=== PATIENT | female | born 1990 | race Caucasian/White ===

== ENCOUNTER → 2017-01-13 | Outpatient (CLI) | payer OTHER ==
[2017-01-13 15:12] LABS: CH 24.3; CHCM 31.5; HCT 36.9 % (34.0-46.0); HDW 2.26; HGB 12.1 gm/dL (11.4-16.0); MCH 25.3 pg (25.0-35.0); MCHC 32.7 g/dL (31.0-37.0); MCV 77.5 fL (80.0-100.0); Mean Platelet Volume 6.8; RBC 4.76 m/uL (3.80-5.40); RDW 14.7 % (11.5-15.5); WBC 12.4 k/uL (3.8-10.6)
[2017-01-13 15:31] LABS: Glucose 90 mg/dL (74-99); Non-African American GFR(MDRD) >60 (>60 ml/min/1.73 sqM)
[2017-01-13 15:59] LABS: Hepatitis B Surface Ag Index 0.06
[2017-01-14 06:39] LABS: Toxoplasma Antibody (IgG) <3.0 IU/mL (<7.2)
== END ==
LOC: LABWHC1 14:51
PROVIDERS: ATTEND Obstetrics & Gynecology
DX: Z34.91 Encounter for supervision of normal pregnancy, unspecified, first trimester (principal); Z3A.00 Weeks of gestation of pregnancy not specified
CPT/HCPCS: 36415; 82565; 82947; 85027; 86762; 86777; 86778; 86780; 86850; 86900; 86901; 87340

== ENCOUNTER 2017-01-31 18:45 | Emergency (ER) | payer OTHER ==
[2017-01-31] MEDS ORDERED: PYRIDOXINE 100 MG/ML 1 ML VIAL IVP STA (19:38)
[2017-01-31] MEDS ORDERED: SODIUM CHLORIDE 0.9% 1,000 ML IV ONE (19:38)
[2017-01-31] MEDS ORDERED: diphenhydrAMINE 50 MG/ML 1 ML VIAL IVP STA (19:39)
--- NOTE | 2017-01-31 19:41 | ED ---
Nausea/Vomiting/Diarrhea HPI - General Chief complaint: Nausea/Vomiting/Diarrhea Stated complaint: vomiting with Time Seen by Provider: 01/31/17 19:11 Source: patient, RN notes reviewed Mode of arrival: ambulatory Limitations: no limitations - History of Present Illness Initial comments: Patient is a 26-year-old female presents emergency room for evaluation and nausea and vomiting. Patient states about 9 weeks . Patient states since Monday she has been unable to keep any food down. Patient states nausea and vomiting is worse in the nighttime. Patient states she is nauseous all through the day. Patient denies abdominal pain. Patient denies fevers or chills. Patient denies headache or dizziness. Patient denies pain or burning during urination, trouble urinating or blood in urine. Patient is . Patient denies history of abdominal surgeries. Patient denies vaginal bleeding or any vaginal discomfort. - Related Data Home Medications Medication Instructions Recorded Confirmed Doxylamine Succinate [Unisom] 25 mg PO HS 01/31/17 01/31/17 Pedi Multivit No.25/Folic Acid 2 tab PO DAILY 01/31/17 01/31/17 [Flintstones Multivit Chew Tab] Previous Rx's Medication Instructions Recorded Nitrofurantoin Monohyd/M-Cryst 100 mg PO Q12HR 5 Days 01/31/17 [Macrobid] Allergies Allergy/AdvReac Type Severity Reaction Status Date / Time No Known Allergies Allergy Verified 01/31/17 19:12 Review of Systems ROS Statement: Those systems with pertinent positive or pertinent negative responses have been documented in the HPI. ROS Other: All systems not noted in ROS Statement are negative. Past Medical History Past Medical History: GERD/Reflux History of Any Multi-Drug Resistant Organisms: None Reported Past Surgical History: Adenoidectomy, Ear Surgery, Tonsillectomy Past Anesthesia/Blood Transfusion Reactions: No Reported Reaction Past Psychological History: No Psychological Hx Reported Smoking Status: Never smoker Past Alcohol Use History: None Reported Past Drug Use History: None Reported - Past Family History Mother Family Medical History: No Reported History General Exam - General Exam Comments Initial Comments: Sitting in exam room, no acute distress. Limitations: no limitations General appearance: alert, in no apparent distress Head exam: Present: atraumatic, normocephalic, normal inspection Eye exam: Present: normal appearance ENT exam: Present: normal exam Neck exam: Present: normal inspection Respiratory exam: Present: normal lung sounds bilaterally. Absent: respiratory distress Cardiovascular Exam: Present: normal rhythm, tachycardia, normal heart sounds GI/Abdominal exam: Present: soft, normal bowel sounds. Absent: distended, tenderness, guarding, rebound, rigid Extremities exam: Present: normal inspection Back exam: Present: normal inspection Neurological exam: Present: alert, oriented X3, CN II-XII intact, normal gait Psychiatric exam: Present: normal affect, normal mood Skin exam: Present: warm, dry, intact, normal color. Absent: rash Course Vital Signs 01/31/17 01/31/17 19:02 22:29 Temperature 99.8 F H 97.7 F Pulse Rate 120 H 62 Respiratory 18 16 Rate Blood Pressure 113/80 114/60 O2 Sat by Pulse 100 99 Oximetry Medical Decision Making - Medical Decision Making Patient is a 26-year-old female presents to the emergency room for evaluation of nausea and vomiting. Patient states she is about 9 weeks . Patient denies vaginal bleeding. Patient given medications and states that she is feeling better. Urinalysis suspicious for urinary tract infection. Will treat patient for urinary tract infection. Advised patient to follow-up with [facility]. Patient states she understands everything that was discussed with her. Return parameters discussed. Case discussed with Dr. Fisher. - Lab Data Result diagrams: 01/31/17 19:50 01/31/17 19:50 Lab Results 01/31/17 01/31/17 01/31/17 Range/Units 19:50 19:50 19:50 WBC 12.3 H (3.8-10.6) k/uL RBC 5.00 (3.80-5.40) m/uL Hgb 12.5 (11.4-16.0) gm/dL Hct 39.4 (34.0-46.0) % MCV 78.8 L (80.0-100.0) fL MCH 25.0 (25.0-35.0) pg MCHC 31.7 (31.0-37.0) g/dL RDW 16.3 H (11.5-15.5) % Plt Count 336 (150-450) k/uL Neutrophils % 67 % Lymphocytes % 25 % Monocytes % 4 % Eosinophils % 2 % Basophils % 0 % Neutrophils # 8.2 H (1.3-7.7) k/uL Lymphocytes # 3.0 (1.0-4.8) k/uL Monocytes # 0.5 (0-1.0) k/uL Eosinophils # 0.3 (0-0.7) k/uL Basophils # 0.0 (0-0.2) k/uL Anisocytosis Slight Sodium 135 L (137-145) mmol/L Potassium 3.8 (3.5-5.1) mmol/L Chloride 104 (98-107) mmol/L Carbon Dioxide 20 L (22-30) mmol/L Anion Gap 11 mmol/L BUN 7 (7-17) mg/dL Creatinine 0.56 (0.52-1.04) mg/dL Est GFR (MDRD) Af Amer >60 (>60 ml/min/1.73 sqM) Est GFR (MDRD) Non-Af >60 (>60 ml/min/1.73 sqM) Glucose 83 (74-99) mg/dL Calcium 9.0 (8.4-10.2) mg/dL Magnesium 1.9 (1.6-2.3) mg/dL Total Bilirubin 0.3 (0.2-1.3) mg/dL AST 14 (14-36) U/L ALT 30 (9-52) U/L Alkaline Phosphatase 89 (38-126) U/L Total Protein 7.0 (6.3-8.2) g/dL Albumin 4.0 (3.5-5.0) g/dL Amylase 49 (30-110) U/L Lipase 43 (23-300) U/L HCG, Quant 282647.0 mIU/mL Urine Color Urine Appearance (Clear) Urine pH (5.0-8.0) Ur Specific Pyatt (1.001-1.035) Urine Protein (Negative) Urine Glucose (UA) (Negative) Urine Ketones (Negative) Urine Blood (Negative) Urine Nitrite (Negative) Urine Bilirubin (Negative) Urine Urobilinogen (<2.0) mg/dL Ur Leukocyte Esterase (Negative) Urine RBC (0-5) /hpf Urine WBC (0-5) /hpf Ur Squamous Epith Cells (0-4) /hpf Urine Bacteria (None) /hpf Urine Mucus (None) /hpf 01/31/17 Range/Units 19:50 WBC (3.8-10.6) k/uL RBC (3.80-5.40) m/uL Hgb (11.4-16.0) gm/dL Hct (34.0-46.0) % MCV (80.0-100.0) fL MCH (25.0-35.0) pg MCHC (31.0-37.0) g/dL RDW (11.5-15.5) % Plt Count (150-450) k/uL Neutrophils % % Lymphocytes % % Monocytes % % Eosinophils % % Basophils % % Neutrophils # (1.3-7.7) k/uL Lymphocytes # (1.0-4.8) k/uL Monocytes # (0-1.0) k/uL Eosinophils # (0-0.7) k/uL Basophils # (0-0.2) k/uL Anisocytosis Sodium (137-145) mmol/L Potassium (3.5-5.1) mmol/L Chloride (98-107) mmol/L Carbon Dioxide (22-30) mmol/L Anion Gap mmol/L BUN (7-17) mg/dL Creatinine (0.52-1.04) mg/dL Est GFR (MDRD) Af Amer (>60 ml/min/1.73 sqM) Est GFR (MDRD) Non-Af (>60 ml/min/1.73 sqM) Glucose (74-99) mg/dL Calcium (8.4-10.2) mg/dL Magnesium (1.6-2.3) mg/dL Total Bilirubin (0.2-1.3) mg/dL AST (14-36) U/L ALT (9-52) U/L Alkaline Phosphatase (38-126) U/L Total Protein (6.3-8.2) g/dL Albumin (3.5-5.0) g/dL Amylase (30-110) U/L Lipase (23-300) U/L HCG, Quant mIU/mL Urine Color Yellow Urine Appearance Cloudy H (Clear) Urine pH 6.5 (5.0-8.0) Ur Specific Pyatt 1.017 (1.001-1.035) Urine Protein Trace H (Negative) Urine Glucose (UA) Negative (Negative) Urine Ketones 1+ H (Negative) Urine Blood Negative (Negative) Urine Nitrite Negative (Negative) Urine Bilirubin Negative (Negative) Urine Urobilinogen <2.0 (<2.0) mg/dL Ur Leukocyte Esterase Moderate H (Negative) Urine RBC 5 (0-5) /hpf Urine WBC 9 H (0-5) /hpf Ur Squamous Epith Cells 14 H (0-4) /hpf Urine Bacteria Occasional H (None) /hpf Urine Mucus Rare H (None) /hpf Disposition Clinical Impression: Hyperemesis gravidarum, Urinary tract infection Disposition: HOME SELF-CARE Condition: Good Instructions: Hyperemesis Gravidarum (ED), Urinary Tract Infection in (ED) Additional Instructions: Take antibiotics as directed. Drink plenty of fluids. Please follow up with primary care provider in 1-2 days. If any new symptom arises or symptoms worsen , return to ER as soon as possible. Prescriptions: Nitrofurantoin Monohyd/M-Cryst [Macrobid] 100 mg PO Q12HR 5 Days Referrals: Ramsey Chaudhary MD [Primary Care Provider] - 1-2 days Carisa Mcnulty DO [Doctor of Osteopathic Medicine] - 1-2 days Time of Disposition: 21:45
[2017-01-31 20:03] LABS: Anisocytosis Slight; Basophils % (A) 0 %; CH 25.7; CHCM 32.8; Eosinophils # (A) 0.3 k/uL (0-0.7); Eosinophils % (A) 2 %; HCT 39.4 % (34.0-46.0); HDW 2.24; HGB 12.5 gm/dL (11.4-16.0); Luc # (Auto) 0.24; Luc % (Auto) 2; Lymphocytes % (A) 25 %; MCHC 31.7 g/dL (31.0-37.0); MCV 78.8 fL (80.0-100.0); Mean Platelet Volume 6.9; Monocytes # (A) 0.5 k/uL (0-1.0); Monocytes % (A) 4 %; Neutrophils # (A) 8.2 k/uL (1.3-7.7); Neutrophils % (A) 67 %; RDW 16.3 % (11.5-15.5); WBC 12.3 k/uL (3.8-10.6); WBC (Perox) 12.04
[2017-01-31 20:05] LABS: Appearance,Urine Cloudy (Clear); Bacteria,Urine Occasional /hpf; Bilirubin,Urine Negative (Negative); Glucose,Urine (UA) Negative (Negative); Ketones,Urine 1+ (Negative); Leukocyte Esterase,Urine Moderate (Negative); Mucus,Urine Rare /hpf; Nitrite,Urine Negative (Negative); PH, Urine 6.5 (5.0-8.0); Particle Count 3840; Protein,Urine Trace (Negative); RBC,Urine 5 /hpf (0-5); Specific Gravity,Urine 1.017 (1.001-1.035); Squamous Epithelial Cell,Urine 14 /hpf (0-4); UA Billing (MACRO vs. MICRO) MICRO; Urobilinogen,Urine <2.0 mg/dL (<2.0); WBC,Urine 9 /hpf (0-5)
[2017-01-31 20:14] LABS: ALT 30 U/L (9-52); AST 14 U/L (14-36); Alkaline Phosphatase 89 U/L (38-126); Amylase 49 U/L (30-110); Anion Gap 11 mmol/L; Blood Urea Nitrogen 7 mg/dL (7-17); Carbon Dioxide 20 mmol/L (22-30); Chloride 104 mmol/L (98-107); Glucose 83 mg/dL (74-99); Non-African American GFR(MDRD) >60 (>60 ml/min/1.73 sqM); Potassium 3.8 mmol/L (3.5-5.1); Sodium 135 mmol/L (137-145); Total Bilirubin 0.3 mg/dL (0.2-1.3)
[2017-01-31 20:46] LABS: Magnesium 1.9 mg/dL (1.6-2.3)
[2017-01-31] MEDS ORDERED: NITROFURANTOIN MONOHYD/M-CRYST 100 MG CAP PO STA (21:34)
[2017-01-31] MEDS ORDERED: METOCLOPRAMIDE 5 MG/ML 2 ML VIAL IVP STA (21:37)
[2017-01-31] MEDS ORDERED: SODIUM CHLORIDE 0.9% 500 ML IV ONE (21:37)
[2017-01-31 22:30] VITALS: BP 114/60; PULSE 62; RESP 16; TEMP 97.7
== END 2017-01-31 22:29 | disposition home or self-care (01) ==
LOC: EC 18:45
DX: O21.0 Mild hyperemesis gravidarum (principal); O23.41 Unspecified infection of urinary tract in pregnancy, first trimester; O99.89 Other specified diseases and conditions complicating pregnancy, childbirth and the puerperium; R00.0 Tachycardia, unspecified; Z79.899 Other long term (current) drug therapy; Z3A.09 9 weeks gestation of pregnancy
CPT/HCPCS: 36415; 80053; 82150; 83690; 83735; 85025; 81001; 84702; 99284; 96374; 96375 ×2; 96361 ×2; J1200; J3415; J2765

== ENCOUNTER → 2017-05-23 | Outpatient (CLI) | payer OTHER ==
[2017-05-23 10:25] LABS: CH 26.4; CHCM 31.9; HCT 33.2 % (34.0-46.0); HDW 2.69; HGB 10.4 gm/dL (11.4-16.0); Hypochromasia Slight; MCHC 31.3 g/dL (31.0-37.0); MCV 83.3 fL (80.0-100.0); Mean Platelet Volume 6.8; RBC 3.98 m/uL (3.80-5.40); RDW 13.7 % (11.5-15.5); WBC 9.1 k/uL (3.8-10.6)
== END | disposition home or self-care (01) ==
LOC: LABWHC1 08:46
PROVIDERS: ATTEND Obstetrics & Gynecology
DX: Z34.82 Encounter for supervision of other normal pregnancy, second trimester (principal); Z3A.00 Weeks of gestation of pregnancy not specified
CPT/HCPCS: 36415; 82950; 85027

== ENCOUNTER 2017-08-28 16:53 | Outpatient (CLI) | payer OTHER ==
[2017-08-28 18:12] VITALS: BP 129/79; PULSE 125; RESP 16; TEMP 98
--- NOTE | 2017-08-28 18:29 | P.MSEPDOC ---
Presenting Problems - Arrival Data Date of Arrival on Unit: 08/28/17 Time of Arrival on Unit: 16:53 Mode of Transport: Ambulatory - Complaint OB-Reason for Admission/Chief Complaint: Possible Onset of Labor Comment: contractions since this morning Medical History - Information : 2 Para: 1 Term: 1 : 0 Abortions: Spontaneous or Elective: 0 Number of Living Children: 1 - Gestational Age Gestational Age by DARNELL (wks/days): 38 Weeks and 5 Days Review of Systems - Review of Systems Constitutional: No problems Breast: No problems ENT: No problems Cardiovascular: No problems Respiratory: No problems Gastrointestinal: No problems Genitourinary: No problems Musculoskeletal: No problems Neurological: No problems Skin: No problems Vital Signs - Temperature Temperature: 98 F Temperature Source: Oral - Pulse Right Pulse Rate: 125 Pulse Assessment Method: Automatic Cuff - Respirations Respiratory Rate: 16 Oxygen Delivery Method: Room Air - Blood Pressure Right Arm Blood Pressure: 129/79 Blood Pressure Mean: 95 Blood Pressure Source: Automatic Cuff Medical Screen Scoring (Pre) - Cervical Exam Dilation: 1-3 cm = 1 Effacement: More than 50% = 2 Membranes: Intact - Uterine Contractions Frequency: > 5 minutes apart = 1 Duration: > 40 seconds = 2 Intensity: N/A - Maternal Vital Signs Maternal Temperature: N/A Maternal Blood Pressure: N/A Signs of Preeclampsia: N/A Maternal Respirations: N/A - Pain Assessment Pain Scale Used: Numeric (1 - 10) Pain Intensity: 0 - Maternal Trauma Maternal Trauma: N/A - Assessment Baseline FHR: 130 Heart Rate - NICHD Category: Category I (Normal) = 0 NST: Reactive Position: N/A Station: N/A - Total Score Total Score (Pre): 6 - Level of Risk Level of Risk: Medium (6-9) Disposition - Disposition OB Disposition: Triage I agree with the RN Medical Screening Exam: Yes Risk & Benefit of care provided described in d/c instruction: Yes Diagnosis: FALSE LABOR AT OR AFTER 37 COMPLETED WEEKS OF GESTATION
== END 2017-08-28 18:25 | disposition home or self-care (01) ==
LOC: FBPOP 16:53
PROVIDERS: ATTEND Obstetrics & Gynecology
DX: O47.1 False labor at or after 37 completed weeks of gestation (principal); Z3A.38 38 weeks gestation of pregnancy
CPT/HCPCS: 59025; 99213

== ENCOUNTER 2017-08-31 21:27 | Inpatient (IN) | payer OTHER ==
[2017-08-31] MEDS ORDERED: OXYTOCIN 10 UNIT/ML 1 ML VIAL IM PRN (21:56)
[2017-08-31] MEDS ORDERED: LIDOCAINE 1% (PF) 10 MG/ML (30 ML SDV) SQ PRN (21:56)
[2017-08-31] MEDS ORDERED: CARBOPROST TROMETHAMINE 250 MCG/ML 1 ML AMP IM PRN (21:56)
[2017-08-31] MEDS ORDERED: TERBUTALINE 1 MG/ML VIAL SQ PRN (21:56)
[2017-08-31] MEDS ORDERED: METHYLERGONOVINE 0.2 MG/ML 1 ML AMP IM PRN (21:56)
[2017-08-31] MEDS ORDERED: OXYTOCIN 20 UNITS/1000 ML NS 1,000 ML IV SCH (22:00)
[2017-08-31 22:09] LABS: Anisocytosis Slight; Basophils % (A) 0 %; Eosinophils % (A) 0 %; HCT 24.9 % (34.0-46.0); HGB 7.5 gm/dL (11.4-16.0); Hypochromasia Marked; Lymphocytes # (A) 1.6 k/uL (1.0-4.8); Lymphocytes % (A) 16 %; MCH 20.7 pg (25.0-35.0); MCHC 30.3 g/dL (31.0-37.0); MCV 68.4 fL (80.0-100.0); Microcytosis Marked; Monocytes # (A) 0.7 k/uL (0-1.0); Monocytes % (A) 7 %; Neutrophils # (A) 7.2 k/uL (1.3-7.7); Neutrophils % (A) 74 %; Platelet Count 208 k/uL (150-450); Poikilocytosis Slight; RBC 3.64 m/uL (3.80-5.40); RDW 16.5 % (11.5-15.5); WBC 9.7 k/uL (3.8-10.6)
[2017-08-31] MEDS: LACTATED RINGERS 1,000 ML IV SCH ×2 (22:17→23:01)
[2017-08-31] MEDS ORDERED: fentaNYL (PF) 50 MCG/ML 5 ML AMP ONE (22:21)
[2017-08-31] MEDS ORDERED: SODIUM CHLORIDE 0.9% 100 ML BAG ONE (22:21)
[2017-08-31] MEDS ORDERED: BUPIVACAINE (PF) 0.25% 30 ML VIAL ONE (22:21)
[2017-08-31] MEDS ORDERED: BUPIVACAINE (PF) 0.25% 25 ML, fentaNYL (PF) 200 MCG in SODIUM CHLORIDE 0.9% 71 ML EPIDURAL ONE (22:46)
[2017-08-31 23:02] VITALS: BMI 31.1
[2017-09-01] MEDS ORDERED: CITRIC ACID-SODIUM CITRATE 15 ML CUP PO ONE (02:02)
[2017-09-01] MEDS ORDERED: diphenhydrAMINE 25 MG CAP PO PRN (02:24)
[2017-09-01] MEDS ORDERED: SIMETHICONE 80 MG CHEWABLE PO PRN (02:24)
[2017-09-01] MEDS ORDERED: BENZOCAINE/MENTHOL SPRAY 1 GM/SPRAY AEROSOL TOPICAL PRN (02:24)
[2017-09-01] MEDS ORDERED: diphenhydrAMINE 50 MG/ML 1 ML VIAL IVP PRN ×2 (02:24)
[2017-09-01] MEDS ORDERED: LANOLIN CREAM 5 GM TUBE TOPICAL PRN (02:24)
[2017-09-01] MEDS ORDERED: ACETAMINOPHEN TAB 325 MG TAB PO PRN (02:24)
[2017-09-01] MEDS ORDERED: HYDROCORTISONE 2.5% RECTAL CREAM 30 GM TUBE RECTAL PRN (02:24)
[2017-09-01] MEDS ORDERED: ZOLPIDEM 5 MG TAB PO PRN (02:24)
[2017-09-01] MEDS ORDERED: diphenhydrAMINE 50 MG CAP PO PRN (02:24)
[2017-09-01] MEDS ORDERED: WITCH HAZEL 1 EACH MED..PAD TOPICAL PRN (02:24)
--- NOTE | 2017-09-01 02:27 | P.HPOB ---
History of Present Illness H&P Date: 08/31/17 Chief Complaint: Intrauterine at term active labor Velma is a 27-year-old at 39 weeks gestation who ryes lupis every 3 minutes dilated to 7 cm. Her Precis course up until the last few days has been unremarkable but yesterday she was diagnosed with influenza. She has taken 1 dose of Tamiflu. She does not have much of a cough however and has minimal upper respiratory symptoms. Pertinent labs do include A+ blood type Rh antibody negative, rubella immune, hepatitis B surface antigen and RPR were all negative. Strep was negative. On physical exam vital signs are stable and afebrile. Heart regular, lungs clear, extremities without pain. Abdomen soft with gravid uterus noted. Artificial rupture membranes was performed and thick meconium was noted. We'll plan to have anesthesia therefore delivery. Assessment intrauterine at term with thick meconium. Plan expect spontaneous vaginal deliveries and she anticipates use of an epidural for analgesia. Past Medical History Past Medical History: GERD/Reflux History of Any Multi-Drug Resistant Organisms: None Reported Past Surgical History: Adenoidectomy, Ear Surgery, Tonsillectomy Past Anesthesia/Blood Transfusion Reactions: No Reported Reaction Past Psychological History: No Psychological Hx Reported Smoking Status: Never smoker Past Alcohol Use History: None Reported Past Drug Use History: None Reported - Past Family History Mother Family Medical History: Cancer Additional Family Medical History / Comment(s): thyroid Medications and Allergies Home Medications Medication Instructions Recorded Confirmed Type Pedi Multivit No.25/Folic Acid 2 tab PO DAILY 01/31/17 08/31/17 History [Flintstones Multivit Chew Tab] Ranitidine HCl 150 mg PO BID 08/28/17 08/31/17 History Acetaminophen [Tylenol] 2 tab PO Q4H 08/31/17 08/31/17 History Oseltamivir [Tamiflu] 75 mg PO Q12HR 08/31/17 08/31/17 History Allergies Allergy/AdvReac Type Severity Reaction Status Date / Time No Known Allergies Allergy Verified 08/28/17 17:12 Exam Osteopathic Statement: *. No significant issues noted on an osteopathic structural exam other than those noted in the History and Physical/Consult. - Vital Signs Vital signs: Vital Signs Temp Pulse Resp BP Pulse Ox 08/31/17 22:53 97.9 F 108 H 16 111/65 100 Intake and Output 08/31/17 08/31/17 09/01/17 14:59 22:59 06:59 Intake Total 2.45 Balance 2.45 Intake: Intake, IV Titration 2.45 Amount Oxytocin 20 Units/1000 ml 2.45 Ns 1,000 ml @ 1 MILLIUNIT/MIN 3 mls/hr IV .Q24H LADARIUS Rx#:[id number] Other: # Voids 0 Weight 77.111 kg Patient Weight 09/01/17 06:59 Weight 77.111 kg Results Result Diagrams: 08/31/17 22:00 Abnormal Lab Results - Last 24 Hours (Table) 08/31/17 Range/Units 22:00 RBC 3.64 L (3.80-5.40) m/uL Hgb 7.5 L (11.4-16.0) gm/dL Hct 24.9 L (34.0-46.0) % MCV 68.4 L (80.0-100.0) fL MCH 20.7 L (25.0-35.0) pg MCHC 30.3 L (31.0-37.0) g/dL RDW 16.5 H (11.5-15.5) %
--- NOTE | 2017-09-01 02:28 | P.PROBDLV ---
Vaginal Delivery Note - . Vaginal Delivery Note: Patient progressed complete and pushing with spontaneous vaginal delivery of a viable female over a second-degree midline laceration. Falling deliver the head anterior and posterior shoulders delivered with gentle downward upper traction followed by the remainder the baby. Mouth nares were then bulb suctioned and a was then placed on mother's abdomen where the umbilical cord was clamped and cut in usual fashion. Placenta was then delivered intact and Pitocin was added to the IV. scores were 8 and 9 at one and 5 minutes respectively and the weight is pending. Second-degree midline laceration was also repaired with 3-0 Vicryl fine 1% Xylocaine for analgesia. Both mother and baby are stable findings delivery and the [employer] was present for delivery but with spontaneous cry noted was not required to perform any treatments
[2017-09-01] MEDS: IBUPROFEN 600 MG TAB PO PRN ×2 (05:13→14:21)
[2017-09-01] MEDS: SENNOSIDES-DOCUSATE SODIUM 1 EACH TAB PO SCH ×2 (10:15→20:38)
[2017-09-01] MEDS: LACTATED RINGERS 1,000 ML IV SCH (14:23)
[2017-09-02] MEDS: LACTATED RINGERS 1,000 ML IV SCH (04:48)
[2017-09-02] MEDS: SENNOSIDES-DOCUSATE SODIUM 1 EACH TAB PO SCH ×2 (08:13→19:45)
[2017-09-02] MEDS: IBUPROFEN 600 MG TAB PO PRN ×2 (08:13→14:58)
--- NOTE | 2017-09-02 11:33 | P.PNOBGVD ---
Subjective - Subjective Principal diagnosis: Status post vaginal delivery day #1 Interval history: Patient is doing well. She is feeling much better with her flu. Lochia is decreasing. Pain is well-controlled. She is breast-feeding. Patient reports: Reports appetite normal, Reports voiding normally, Reports pain well controlled, Reports ambulating normally : doing well, nursing well Objective - Latest Vital Signs Latest vital signs: Vital Signs Temp Pulse Resp BP BP Pulse Ox 09/02/17 08:00 97.9 F 99 16 121/69 99 09/02/17 00:00 97.7 F 93 16 116/70 09/01/17 20:00 98.0 F 91 16 112/74 98 09/01/17 15:11 97.6 F 86 16 102/65 09/01/17 12:00 97.4 F L 113 H 16 112/70 - Exam Extremities: Present: normal. Absent: tenderness Abdomen: Present: normal appearance, soft. Absent: distention, tenderness Uterus: Present: normal, firm. Absent: tenderness Assessment and Plan Assessment: Status post vaginal delivery day #1. Plan: Will continue with care and anticipate discharge home tomorrow.
[2017-09-03] MEDS: SENNOSIDES-DOCUSATE SODIUM 1 EACH TAB PO SCH (07:28)
[2017-09-03 07:42] VITALS: BP 127/77; PULSE 78; RESP 16; TEMP 98.1
--- NOTE | 2017-09-03 11:07 | P.DS ---
Providers Date of admission: 08/31/17 21:37 Expected date of discharge: 09/03/17 Attending physician: Carisa Mcnulty Primary care physician: Stated None Hospital Course: This is a 27-year-old female 2 para 1 at 39 and one sevenths weeks who presented in active labor. She delivered vaginally a viable female on with scores of 8 at 1 minute and 9 at 5 minutes and weight of 7 pounds 4.8 ounces. Of note she did have the flu and had already started on Tamiflu before arrival to the hospital. Her flu symptoms are completely gone at this time. She denies any coughing or fevers. Lochia is decreasing. She is breast-feeding without difficulty. Vital signs are stable. Abdomen is soft with fundus firm and nontender. Extremities show negative Homans. Impression is status post vaginal delivery day #2. Plan is to discharge home today. Routine instructions are given. She states she has a breast pump at home. She denies the need for any pain medication. She is advised to follow up with Dr. Mcnulty in 6 weeks in the office. She is advised to call the office if she has any further questions or concerns prior to her appointment time. Procedures: Spontaneous vaginal delivery of a viable female infant on 09/01/2017 Patient Condition at Discharge: Stable Plan - Discharge Summary New Discharge Prescriptions: No Action Pedi Multivit No.25/Folic Acid [Flintstones Multivit Chew Tab] 2 tab PO DAILY Ranitidine HCl 150 mg PO BID Oseltamivir [Tamiflu] 75 mg PO Q12HR Acetaminophen [Tylenol] 2 tab PO Q4H Discharge Medication List Pedi Multivit No.25/Folic Acid [Flintstones Multivit Chew Tab] 2 tab PO DAILY [History] Ranitidine HCl 150 mg PO BID 08/28/17 [History] Acetaminophen [Tylenol] 2 tab PO Q4H 08/31/17 [History] Oseltamivir [Tamiflu] 75 mg PO Q12HR 08/31/17 [History] Follow up Appointment(s)/Referral(s): Carisa Mcnulty DO [Doctor of Osteopathic Medicine] - 6 Weeks Patient Instructions/Handouts: Vaginal Delivery (DC) Activity/Diet/Wound Care/Special Instructions: Instructions 1. Do not begin any exercise program for 3 weeks. 2. Do not resume sexual relations for 3 weeks or longer if uncomfortable. 3. You may take tub baths or showers at any time. 4. You may use tampons if desired after 3 weeks. 5. Keep the area of episiotomy (stitches) clean and dry. 6. If you are not nursing, wear a good fitting, supportive bra during the day and limit fluid intake for at least 1 week to prevent breast engorgement. 7. Call the office, [phone], within the next week to make appointment for your 6 week checkup if it has not already been made. 8. Report any of the following occurrences to the doctor promptly: a. Heavy, excessive bleeding b. Chills, fever c. Burning or frequency of urination d. Pain or redness and breasts if nursing e. Increasing pain or swelling in episiotomy (stitches). In addition to the above instructions, the following additional should be followed: 1. No heavy lifting or straining (exercising) until after 6 week checkup. 2. Keep abdominal incision clean and dry: You may wear a dressing if more comfortable. 3. Make office appointment for 10 days after going home or as instructed by her doctor. Discharge Disposition: HOME SELF-CARE
== END 2017-09-03 12:03 | disposition home or self-care (01) | DRG 775 ==
LOC: FBPOP 21:27 → 4FBP 21:37
PROVIDERS: ADMIT Obstetrics & Gynecology; ATTEND Obstetrics & Gynecology
PROC: 0KQM0ZZ Repair Perineum Muscle, Open Approach (ICD-10-PCS; principal; 2017-09-01)
PROC: 10E0XZZ Delivery of Products of Conception, External Approach (ICD-10-PCS; principal; 2017-09-01)
DX: O77.0 Labor and delivery complicated by meconium in amniotic fluid (principal); J11.1 Influenza due to unidentified influenza virus with other respiratory manifestations; K21.9 Gastro-esophageal reflux disease without esophagitis; O70.1 Second degree perineal laceration during delivery; O99.62 Diseases of the digestive system complicating childbirth; O99.52 Diseases of the respiratory system complicating childbirth; Z37.0 Single live birth; Z3A.39 39 weeks gestation of pregnancy
CPT/HCPCS: 59025; 85025; 88307; 99213

== ENCOUNTER → 2020-03-05 | Outpatient (CLI) | payer BC ==
--- NOTE | 2020-03-11 12:43 | HM ---
This is a report on the 24-hour DCG. Baseline rhythm is sinus. Patient reminded in sinus rhythm with an average heart rate of 92. Minimum is 65 and a max was 151. No arrhythmias noted. No bradycardia noted. Patient has several symptoms including lightheadedness pressure in the chest. Chest pain and tightness and also palpitations. Not correlating with any cardiac events. Final impression #1. Sinus rhythm. #2. No arrhythmias. #3. Patient has several symptoms as outlined above, not correlating with any cardiac events MTDD
== END | disposition home or self-care (01) ==
LOC: RADECHMAIN 11:53
PROVIDERS: ATTEND Family Medicine
DX: R00.2 Palpitations (principal); R42 Dizziness and giddiness; R07.89 Other chest pain
CPT/HCPCS: 93225; 93226

== ENCOUNTER → 2020-03-19 | Outpatient (CLI) | payer BC | END | disposition home or self-care (01) | LOC: LABWHC1 14:40 | PROVIDERS: ATTEND Family Medicine | DX: R00.0 Tachycardia, unspecified (principal); R00.2 Palpitations | CPT/HCPCS: 36415; 86376; 86800 ==

== ENCOUNTER → 2020-04-09 | Outpatient (CLI) | payer BC ==
--- NOTE | 2020-04-09 08:59 | US ---
EXAMINATION TYPE: US thyroid st tissue head/neck DATE OF EXAM: 04/09/2020 COMPARISON: NONE CLINICAL HISTORY: E06.9 Thyroiditis. thyroiditis, family history of thyroid cancer GLAND SIZE: Right Lobe: 4.0 x 1.4 x 1.9 cm Overall Parenchyma: homogenous Left Lobe: 3.9 x 1.1 x 1.4 cm Overall Parenchyma: homogeneous Isthmus Thickness: 0.3 cm NODULES RIGHT: # of nodules measured on right: 0 LEFT: # of nodules measured on left: 1 1. 0.5 X 0.4 x 0.6 cm solid nodule at the mid/lower pole with well-defined margins. This nodule is wider than tall and shows intranodular vascularity. Prior size: no prior ISTHMUS: # of nodules measured in the isthmus: 0 Bilateral neck scanned, no evidence of lymphadenopathy. IMPRESSION: 1. Subcentimeter nodule left lobe thyroid
== END | disposition home or self-care (01) ==
LOC: RADUSWWP 08:05
PROVIDERS: ATTEND Family Medicine
DX: E04.1 Nontoxic single thyroid nodule (principal)
CPT/HCPCS: 76536

== ENCOUNTER 2020-05-18 07:56 | Day surgery (SDC) | payer BC ==
[2020-05-14 12:02] VITALS: BMI 26.8
[~2020-05-18 07:56] MED LIST: SODIUM CHLORIDE 0.9% 1,000 ML IV SCH
[2020-05-18] MEDS ORDERED: SODIUM CHLORIDE 0.9% 500 ML 500 ML IV ONE (08:11)
[2020-05-18 08:17] VITALS: BP 104/67; RESP 16; TEMP 98.8
[2020-05-18 10:13] VITALS: PULSE 90
--- NOTE | 2020-05-18 15:39 | P.EPPROC ---
- EP Procedure Note Electrophysiology Procedure Note: Diagnosis: Presyncope, recurrent Twelve-lead EKG Sinus mechanism normal DE narrow QRS normal ST segments Tilt table test per protocol Baseline blood pressure 103/62 mmHg, Baseline heart rate 79 beats a minute Patient was tilted upright at an angle of 70 per protocol there was an immediate increase in heart rate 104 beats a minute and her heart rate remained between 100 and 110 beats a minute Peak heart rate 121 beats a minute Associated was tilted upright she felt lightheaded but this resolved in a few minutes Thereafter no symptoms noted Impression Normal twelve-lead ECG orthostatic intolerance/pots
== END 2020-05-18 10:11 | disposition home or self-care (01) ==
LOC: CATHEP 07:56
PROVIDERS: ATTEND Internal Medicine Clinical Cardiac Electrophysiology
DX: R55 Syncope and collapse (principal)
CPT/HCPCS: 81025; 93660

== ENCOUNTER → 2020-07-24 | Outpatient (CLI) | payer BC ==
[2020-07-24 13:12] LABS: Basophils # (A) 0.1 k/uL (0-0.2); Basophils % (A) 1 %; Eosinophils # (A) 0.1 k/uL (0-0.7); Eosinophils % (A) 1 %; HCT 37.9 % (34.0-46.0); HGB 12.1 gm/dL (11.4-16.0); Lymphocytes # (A) 2.7 k/uL (1.0-4.8); Lymphocytes % (A) 39 %; MCH 26.1 pg (25.0-35.0); MCHC 31.9 g/dL (31.0-37.0); MCV 81.9 fL (80.0-100.0); Mean Platelet Volume 7.9; Monocytes # (A) 0.3 k/uL (0-1.0); Monocytes % (A) 5 %; Neutrophils # (A) 3.6 k/uL (1.3-7.7); Neutrophils % (A) 52 %; Platelet Count 276 k/uL (150-450); RBC 4.63 m/uL (3.80-5.40); RDW 14.7 % (11.5-15.5); WBC 6.9 k/uL (3.8-10.6)
[2020-07-24 23:01] LABS: Ferritin 5.4 ng/mL (10.0-291.0)
== END | disposition home or self-care (01) ==
LOC: LABWHC1 12:06
PROVIDERS: ATTEND Family Medicine
DX: D64.9 Anemia, unspecified (principal)
CPT/HCPCS: 36415; 82728; 83540; 85025

== ENCOUNTER → 2020-09-22 | Outpatient (CLI) | payer BC ==
[2020-09-22 15:14] LABS: Basophils # (A) 0.06 X 10*3/uL (0.00-0.10); Basophils % (A) 0.8 %; Eosinophils % (A) 1.3 %; HCT 40.7 % (37.2-46.3); HGB 12.5 g/dL (12.0-15.0); Lymphocytes # (A) 2.97 X 10*3/uL (0.90-5.00); Lymphocytes % (A) 39.9 %; MCH 25.8 pg (27.0-32.0); MCHC 30.7 g/dL (32.0-37.0); MCV 84.1 fL (80.0-97.0); Mean Platelet Volume 10.6 fL (9.5-12.2); Monocytes # (A) 0.41 X 10*3/uL (0.20-1.00); Monocytes % (A) 5.5 %; Neutrophils # (A) 3.88 X 10*3/uL (1.80-7.70); Neutrophils % (A) 52.2 %; Platelet Count 293 X 10*3/uL (140-440); RBC 4.84 X 10*6/uL (4.10-5.20); RDW 15.3 % (11.5-14.5); WBC 7.44 X 10*3/uL (4.50-10.00)
[2020-09-22 16:44] LABS: Ferritin 15.7 ng/mL (10.0-291.0)
== END | disposition home or self-care (01) ==
LOC: LABWHC1 08:42
PROVIDERS: ATTEND Family Medicine
DX: E61.1 Iron deficiency (principal)
CPT/HCPCS: 36415; 82728; 83540; 85025

== ENCOUNTER → 2020-10-29 | Outpatient (CLI) | payer BC | END | disposition home or self-care (01) | LOC: LABWHC1 09:43 | PROVIDERS: ATTEND Obstetrics & Gynecology | DX: O20.0 Threatened abortion (principal); Z3A.00 Weeks of gestation of pregnancy not specified | CPT/HCPCS: 36415; 84702 ==

== ENCOUNTER → 2020-10-30 | Outpatient (CLI) | payer BC | END | disposition home or self-care (01) | LOC: LABWHC1 08:04 | PROVIDERS: ATTEND Obstetrics & Gynecology | DX: Z32.01 Encounter for pregnancy test, result positive (principal) | CPT/HCPCS: 36415; 84702 ==

== ENCOUNTER → 2020-11-23 | Outpatient (CLI) | payer BC ==
[2020-11-23 14:42] LABS: T4, Free (Free Thyroxine) 1.2 ng/dL (0.80-1.80)
== END | disposition home or self-care (01) ==
LOC: LABWHC1 10:30
PROVIDERS: ATTEND Obstetrics & Gynecology
DX: N92.6 Irregular menstruation, unspecified (principal)
CPT/HCPCS: 36415; 84439; 84443; 84702

== ENCOUNTER → 2020-11-25 | Outpatient (CLI) | payer BC | LOC: LABWHC1 07:14 | PROVIDERS: ATTEND Obstetrics & Gynecology | DX: N92.6 Irregular menstruation, unspecified (principal) | CPT/HCPCS: 36415; 84702 ==

== ENCOUNTER → 2020-12-10 | Outpatient (CLI) | payer BC ==
[2020-12-10 15:44] LABS: Basophils # (A) 0.04 X 10*3/uL (0.00-0.10); Basophils % (A) 0.5 %; Eosinophils # (A) 0.08 X 10*3/uL (0.04-0.35); Eosinophils % (A) 0.9 %; HCT 38.9 % (37.2-46.3); HGB 12.4 g/dL (12.0-15.0); MCH 27.4 pg (27.0-32.0); MCHC 31.9 g/dL (32.0-37.0); MCV 85.9 fL (80.0-97.0); Mean Platelet Volume 10.2 fL (9.5-12.2); Monocytes # (A) 0.37 X 10*3/uL (0.20-1.00); Monocytes % (A) 4.2 %; Neutrophils % (A) 63.2 %; Platelet Count 250 X 10*3/uL (140-440); RBC 4.53 X 10*6/uL (4.10-5.20); RDW 13.7 % (11.5-14.5); WBC 8.71 X 10*3/uL (4.50-10.00)
== END | disposition home or self-care (01) ==
LOC: LABWHC1 09:14
PROVIDERS: ATTEND Family Medicine
DX: D64.9 Anemia, unspecified (principal)
CPT/HCPCS: 36415; 85025

== ENCOUNTER 2021-01-03 20:06 | Emergency (ER) | payer BC ==
[2021-01-03 20:10] VITALS: TEMP 98.7
[2021-01-03] MEDS ORDERED: SODIUM CHLORIDE 0.9% 1,000 ML IV ONE (20:19)
--- NOTE | 2021-01-03 20:31 | ED ---
General Adult HPI - General Chief complaint: Abdominal Pain Stated complaint: 9 wks preg, Cramping/Bleeding Time Seen by Provider: 01/03/21 20:13 Source: patient Mode of arrival: ambulatory Limitations: no limitations - History of Present Illness Initial comments: 30-year-old female patient presents to the emergency department today for evaluation of cramping and vaginal bleeding. Patient is 9 weeks . Last menstrual period was 10/10/2020. She is , with a "chemical " in October 2020. States that she has been having spotting since Monday. States today the bleeding became heavier, she filled a panty liner, and the toilet water was blood stained. States she has passed tiny clots. Reports suprapubic cramping that feels like "period cramps". She has a known subchorionic hemorrage that measured 2x1.5cm. She sees Dr. Mcnulty for obstetric care. Has had ultrasound which showed the hemorrhage and that the gestational sac was measuring small. Denies any hematuria, dysuria, urinary urgency, or urinary frequency. Denies any nausea or vomiting. Denies fever or chills. - Related Data Home Medications Medication Instructions Recorded Confirmed Cholecalciferol [Vitamin D3 (25 2,000 unit PO DAILY 05/14/20 05/18/20 Mcg = 1000 Iu)] Allergies Allergy/AdvReac Type Severity Reaction Status Date / Time No Known Allergies Allergy Verified 01/03/21 20:09 Review of Systems ROS Statement: Those systems with pertinent positive or pertinent negative responses have been documented in the HPI. ROS Other: All systems not noted in ROS Statement are negative. Past Medical History Past Medical History: GERD/Reflux, Thyroid Disorder Additional Past Medical History / Comment(s): SEE DR HAGAN'S HISTORY AND PHYSICAL, THYROID NODULE, POTS History of Any Multi-Drug Resistant Organisms: None Reported Past Surgical History: Adenoidectomy, Ear Surgery, Tonsillectomy Additional Past Surgical History / Comment(s): WISDOM TEETH EXTRACTION Past Anesthesia/Blood Transfusion Reactions: No Reported Reaction Past Psychological History: No Psychological Hx Reported Smoking Status: Never smoker Past Alcohol Use History: None Reported Past Drug Use History: None Reported - Past Family History Mother Family Medical History: Cancer Additional Family Medical History / Comment(s): thyroid General Exam Limitations: no limitations General appearance: alert, in no apparent distress, other (This is a well- developed, well-nourished adult female patient in no acute distress. Vital signs upon presentation are temperature 98.7F, pulse 105, respirations 22, blood pressure 136/76, pulse ox 100% on room air.) Eye exam: Present: normal appearance, PERRL, EOMI. Absent: scleral icterus, conjunctival injection, periorbital swelling ENT exam: Present: normal exam, normal oropharynx, mucous membranes moist Respiratory exam: Present: normal lung sounds bilaterally. Absent: respiratory distress, wheezes, rales, rhonchi, stridor Cardiovascular Exam: Present: regular rate, normal rhythm, normal heart sounds. Absent: systolic murmur, diastolic murmur, rubs, gallop, clicks GI/Abdominal exam: Present: soft, tenderness (Suprapubic), normal bowel sounds. Absent: distended, guarding, rebound, rigid Neurological exam: Present: alert, oriented X3, CN II-XII intact Psychiatric exam: Present: normal affect, normal mood Skin exam: Present: warm, dry, intact, normal color. Absent: rash Course Vital Signs 01/03/21 01/03/21 20:08 22:12 Temperature 98.7 F Pulse Rate 105 H 94 Respiratory 22 18 Rate Blood Pressure 136/76 125/69 O2 Sat by Pulse 100 99 Oximetry Medical Decision Making - Medical Decision Making 30-year-old female patient presented for evaluation of vaginal bleeding and cramping, 9 weeks . She is with one "chemical ". Physical examination reveals mild suprapubic tenderness. Labs reviewed and did reveal hCG at 3900. ABO/Rh is A+. Ultrasound was obtained and showed no sign of intrauterine , no definite gestational sac, possibly incomplete . I did discuss findings and results with the patient. She'll be discharged to follow up with her RESIDENT CARE DIRECTOR for recheck as soon as possible. Return parameters discussed in detail. She verbalizes understanding and agrees with this plan. Case discussed with my attending Dr. Cuello. - Lab Data Result diagrams: 01/03/21 20:36 01/03/21 20:36 Lab Results 01/03/21 01/03/21 01/03/21 Range/Units 20:36 20:36 20:36 WBC 11.4 H (3.8-10.6) k/uL RBC 4.61 (3.80-5.40) m/uL Hgb 13.3 (11.4-16.0) gm/dL Hct 38.2 (34.0-46.0) % MCV 82.7 (80.0-100.0) fL MCH 28.8 (25.0-35.0) pg MCHC 34.8 (31.0-37.0) g/dL RDW 13.0 (11.5-15.5) % Plt Count 303 (150-450) k/uL MPV 7.0 Neutrophils % 57 % Lymphocytes % 34 % Monocytes % 4 % Eosinophils % 2 % Basophils % 1 % Neutrophils # 6.5 (1.3-7.7) k/uL Lymphocytes # 3.9 (1.0-4.8) k/uL Monocytes # 0.5 (0-1.0) k/uL Eosinophils # 0.2 (0-0.7) k/uL Basophils # 0.1 (0-0.2) k/uL Sodium 139 (137-145) mmol/L Potassium 4.2 (3.5-5.1) mmol/L Chloride 104 (98-107) mmol/L Carbon Dioxide 27 (22-30) mmol/L Anion Gap 8 mmol/L BUN 8 (7-17) mg/dL Creatinine 0.65 (0.52-1.04) mg/dL Est GFR (CKD-EPI)AfAm >90 (>60 ml/min/1.73 sqM) Est GFR (CKD-EPI)NonAf >90 (>60 ml/min/1.73 sqM) Glucose 110 H (74-99) mg/dL Calcium 9.7 (8.4-10.2) mg/dL Total Bilirubin <0.1 L (0.2-1.3) mg/dL AST 18 (14-36) U/L ALT 18 (4-34) U/L Alkaline Phosphatase 64 (38-126) U/L Total Protein 7.2 (6.3-8.2) g/dL Albumin 4.6 (3.5-5.0) g/dL HCG, Quant 3951.2 mIU/mL Urine Color Urine Appearance (Clear) Urine pH (5.0-8.0) Ur Specific [place] (1.001-1.035) Urine Protein (Negative) Urine Glucose (UA) (Negative) Urine Ketones (Negative) Urine Blood (Negative) Urine Nitrite (Negative) Urine Bilirubin (Negative) Urine Urobilinogen (<2.0) mg/dL Ur Leukocyte Esterase (Negative) Urine RBC (0-5) /hpf Urine WBC (0-5) /hpf Ur Squamous Epith Cells (0-4) /hpf Urine Bacteria (None) /hpf Blood Type A Positive Blood Type Recheck A Pos Bld Type Recheck Status [facility] ONLY 01/03/21 Range/Units 20:36 WBC (3.8-10.6) k/uL RBC (3.80-5.40) m/uL Hgb (11.4-16.0) gm/dL Hct (34.0-46.0) % MCV (80.0-100.0) fL MCH (25.0-35.0) pg MCHC (31.0-37.0) g/dL RDW (11.5-15.5) % Plt Count (150-450) k/uL MPV Neutrophils % % Lymphocytes % % Monocytes % % Eosinophils % % Basophils % % Neutrophils # (1.3-7.7) k/uL Lymphocytes # (1.0-4.8) k/uL Monocytes # (0-1.0) k/uL Eosinophils # (0-0.7) k/uL Basophils # (0-0.2) k/uL Sodium (137-145) mmol/L Potassium (3.5-5.1) mmol/L Chloride (98-107) mmol/L Carbon Dioxide (22-30) mmol/L Anion Gap mmol/L BUN (7-17) mg/dL Creatinine (0.52-1.04) mg/dL Est GFR (CKD-EPI)AfAm (>60 ml/min/1.73 sqM) Est GFR (CKD-EPI)NonAf (>60 ml/min/1.73 sqM) Glucose (74-99) mg/dL Calcium (8.4-10.2) mg/dL Total Bilirubin (0.2-1.3) mg/dL AST (14-36) U/L ALT (4-34) U/L Alkaline Phosphatase (38-126) U/L Total Protein (6.3-8.2) g/dL Albumin (3.5-5.0) g/dL HCG, Quant mIU/mL Urine Color Light Yellow Urine Appearance Clear (Clear) Urine pH 6.0 (5.0-8.0) Ur Specific [place] 1.004 (1.001-1.035) Urine Protein Trace H (Negative) Urine Glucose (UA) Negative (Negative) Urine Ketones Negative (Negative) Urine Blood Large H (Negative) Urine Nitrite Negative (Negative) Urine Bilirubin Negative (Negative) Urine Urobilinogen <2.0 (<2.0) mg/dL Ur Leukocyte Esterase Trace H (Negative) Urine RBC 176 H (0-5) /hpf Urine WBC 5 (0-5) /hpf Ur Squamous Epith Cells 3 (0-4) /hpf Urine Bacteria Few H (None) /hpf Blood Type Blood Type Recheck Bld Type Recheck Status - Radiology Data Radiology results: report reviewed, image reviewed OB ultrasound was obtained impression shows no definite gestational sac seen. No adnexal mass per no sign of ectopic . This could relate to incomplete . Disposition Clinical Impression: Incomplete Disposition: HOME SELF-CARE Condition: Good Instructions (If sedation given, give patient instructions): Miscarriage (ED) Additional Instructions: Increase fluids. Rest. Follow up with your OBGYN as soon as possible to discuss options. Return to the emergency department for any new, worsening, or con cerning symptoms. Is patient prescribed a controlled substance at d/c from ED?: No Referrals: Ramsey Chaudhary MD [Primary Care Provider] - 1-2 days Carisa Mcnulty DO [Doctor of Osteopathic Medicine] - 1-2 days Time of Disposition: 22:06
[2021-01-03 20:55] LABS: Basophils # (A) 0.1 k/uL (0-0.2); Basophils % (A) 1 %; Eosinophils # (A) 0.2 k/uL (0-0.7); Eosinophils % (A) 2 %; HCT 38.2 % (34.0-46.0); HGB 13.3 gm/dL (11.4-16.0); Lymphocytes # (A) 3.9 k/uL (1.0-4.8); Lymphocytes % (A) 34 %; MCH 28.8 pg (25.0-35.0); MCHC 34.8 g/dL (31.0-37.0); MCV 82.7 fL (80.0-100.0); Monocytes # (A) 0.5 k/uL (0-1.0); Monocytes % (A) 4 %; Neutrophils # (A) 6.5 k/uL (1.3-7.7); Neutrophils % (A) 57 %; Platelet Count 303 k/uL (150-450); RBC 4.61 m/uL (3.80-5.40); WBC 11.4 k/uL (3.8-10.6)
[2021-01-03 21:04] LABS: Appearance,Urine Clear (Clear); Bacteria,Urine Few /hpf; Bilirubin,Urine Negative (Negative); Blood,Urine Large (Negative); Color,Urine Light Yellow; Glucose,Urine (UA) Negative (Negative); Ketones,Urine Negative (Negative); Leukocyte Esterase,Urine Trace (Negative); Nitrite,Urine Negative (Negative); Protein,Urine Trace (Negative); RBC,Urine 176 /hpf (0-5); Specific Gravity,Urine 1.004 (1.001-1.035); Squamous Epithelial Cell,Urine 3 /hpf (0-4); Urobilinogen,Urine <2.0 mg/dL (<2.0); WBC,Urine 5 /hpf (0-5)
[2021-01-03 21:16] LABS: ALT 18 U/L (4-34); AST 18 U/L (14-36); African American GFR (CKD) >90 (>60 ml/min/1.73 sqM); Albumin 4.6 g/dL (3.5-5.0); Alkaline Phosphatase 64 U/L (38-126); Anion Gap 8 mmol/L; Blood Urea Nitrogen 8 mg/dL (7-17); Calcium 9.7 mg/dL (8.4-10.2); Carbon Dioxide 27 mmol/L (22-30); Chloride 104 mmol/L (98-107); Glucose 110 mg/dL (74-99); Non-African American GFR(CKD) >90 (>60 ml/min/1.73 sqM); Potassium 4.2 mmol/L (3.5-5.1); Sodium 139 mmol/L (137-145); Total Bilirubin <0.1 mg/dL (0.2-1.3); Total Protein 7.2 g/dL (6.3-8.2)
[2021-01-03 21:30] LABS: HCG,Quantitative Serum 3951.2 mIU/mL
--- NOTE | 2021-01-03 21:33 | US ---
EXAMINATION TYPE: Transabdominal DATE OF EXAM: 01/03/2021 9:20 PM COMPARISON: NONE CLINICAL HISTORY: Vaginal bleeding, cramping. Patient states she had an ultrasound at another facilit y 3 weeks ago and saw a heartbeat. EXAM PERFORMED: Transvaginal (TV) and Transabdominal (TA) EXAM MEASUREMENTS: GESTATIONAL AGE / DATING Physician Established: Not yet established Dates by LMP: LMP unknown - pt states she should be 9 weeks Dates by First Scan: No previous at this facility Dates by Current Scan for: No IUP seen MATERNAL ANATOMY Uterus: 9.4 x 4.0 x 5.1 cm Right Ovary: 2.7 x 2.2 x 1.4 cm Left Ovary: 2.5 x 1.9 x 2.0 cm Post CDS / Adnexa: wnl Presence of free fluid: no Presence of corpus luteal cyst: yes, left ovary measuring 1.6 cm Presence of subchorionic bleed: Hypoechoic area visualized measuring 3.0 x 1.1 x 1.5 cm GESTATION / SURVEY IUP: No IUP seen at this time Date of LMP: Unsure Beta HcG (if available): Not available at this time No IUP visualized on this exam. Endometrium appears complex. Hypoechoic area visualized within the en dometrium measuring 3.0 x 1.1 x 1.5 cm IMPRESSION: No definite gestational sac seen. No adnexal mass. No sign of ectopic . This could relate to incomplete .
[2021-01-03 22:14] VITALS: BP 125/69; PULSE 94; RESP 18
== END 2021-01-03 22:26 | disposition home or self-care (01) ==
LOC: EC 20:06
DX: O03.4 Incomplete spontaneous abortion without complication (principal); Z67.10 Type A blood, Rh positive; Z3A.09 9 weeks gestation of pregnancy
CPT/HCPCS: 36415; 76801; 76817; 80053; 81001; 84702; 85025; 86900; 86901; 96360; 96361; 99284

== ENCOUNTER → 2021-01-21 | Outpatient (CLI) | payer BC | END | disposition home or self-care (01) | LOC: LABWHC1 09:44 | PROVIDERS: ATTEND Obstetrics & Gynecology | DX: O02.1 Missed abortion (principal) | CPT/HCPCS: 36415; 84702 ==

== ENCOUNTER → 2021-03-05 | Outpatient (CLI) | payer BC ==
[2021-03-06 04:35] LABS: T4, Free (Free Thyroxine) 1.4 ng/dL (0.80-1.80)
== END | disposition home or self-care (01) ==
LOC: LABWHC1 07:07
PROVIDERS: ATTEND Obstetrics & Gynecology
DX: Z13.29 Encounter for screening for other suspected endocrine disorder (principal)
CPT/HCPCS: 36415; 84439; 84443

== ENCOUNTER → 2021-04-01 | Outpatient (CLI) | payer BC | END | disposition home or self-care (01) | LOC: LABWHC1 08:27 | PROVIDERS: ATTEND Obstetrics & Gynecology | DX: N92.6 Irregular menstruation, unspecified (principal) | CPT/HCPCS: 36415; 84702 ==

== ENCOUNTER → 2021-04-05 | Outpatient (CLI) | payer BC | END | disposition home or self-care (01) | LOC: LABWHC1 08:36 | PROVIDERS: ATTEND Obstetrics & Gynecology | DX: N92.6 Irregular menstruation, unspecified (principal) | CPT/HCPCS: 36415; 84702 ==

== ENCOUNTER 2021-05-03 12:55 | Emergency (ER) | payer BC ==
[2021-05-03 13:50] VITALS: TEMP 98.2
[2021-05-03] MEDS ORDERED: METOCLOPRAMIDE 5 MG/ML 2 ML VIAL IVP STA (14:25)
[2021-05-03] MEDS ORDERED: SODIUM CHLORIDE 0.9% 1,000 ML IV STA (14:25)
[2021-05-03 14:44] LABS: Basophils % (A) 0 %; Eosinophils # (A) 0.1 k/uL (0-0.7); Eosinophils % (A) 1 %; HCT 41.6 % (34.0-46.0); HGB 13.6 gm/dL (11.4-16.0); Lymphocytes # (A) 2.7 k/uL (1.0-4.8); Lymphocytes % (A) 21 %; MCH 27.9 pg (25.0-35.0); MCHC 32.7 g/dL (31.0-37.0); MCV 85.5 fL (80.0-100.0); Mean Platelet Volume 7.3; Monocytes # (A) 0.4 k/uL (0-1.0); Monocytes % (A) 3 %; Neutrophils # (A) 9.6 k/uL (1.3-7.7); Neutrophils % (A) 73 %; Platelet Count 283 k/uL (150-450); RBC 4.86 m/uL (3.80-5.40); RDW 12.9 % (11.5-15.5); WBC 13.1 k/uL (3.8-10.6)
[2021-05-03 14:53] LABS: ALT 19 U/L (4-34); AST 24 U/L (14-36); African American GFR (CKD) >90 (>60 ml/min/1.73 sqM); Albumin 4.3 g/dL (3.5-5.0); Alkaline Phosphatase 72 U/L (38-126); Anion Gap 10 mmol/L; Blood Urea Nitrogen 10 mg/dL (7-17); Calcium 9.5 mg/dL (8.4-10.2); Carbon Dioxide 23 mmol/L (22-30); Chloride 101 mmol/L (98-107); Glucose 95 mg/dL (74-99); Non-African American GFR(CKD) >90 (>60 ml/min/1.73 sqM); Potassium 3.9 mmol/L (3.5-5.1); Sodium 134 mmol/L (137-145); Total Bilirubin 0.4 mg/dL (0.2-1.3); Total Protein 7.7 g/dL (6.3-8.2)
[2021-05-03 15:01] LABS: Appearance,Urine Cloudy (Clear); Bacteria,Urine Few /hpf; Bilirubin,Urine Negative (Negative); Blood,Urine Negative (Negative); Color,Urine Yellow; Glucose,Urine (UA) Negative (Negative); Ketones,Urine 2+ (Negative); Leukocyte Esterase,Urine Moderate (Negative); Mucus,Urine Many /hpf; Nitrite,Urine Negative (Negative); Protein,Urine Trace (Negative); RBC,Urine 25 /hpf (0-5); Squamous Epithelial Cell,Urine 10 /hpf (0-4); Urobilinogen,Urine <2.0 mg/dL (<2.0); WBC,Urine 8 /hpf (0-5)
[2021-05-03] MEDS ORDERED: SODIUM CHLORIDE 0.9% 500 ML 500 ML IV STA (15:12)
--- NOTE | 2021-05-03 16:09 | ED ---
Nausea/Vomiting/Diarrhea HPI - General Chief complaint: Nausea/Vomiting/Diarrhea Stated complaint: Unable to eat/8 wks preg Time Seen by Provider: 05/03/21 14:19 Source: patient, RN notes reviewed Mode of arrival: ambulatory Limitations: no limitations - History of Present Illness Initial comments: Patient is a 31-year-old female presenting to the emergency Department with complaints of nausea and vomiting, dehydration over the past 4 days. Patient is currently about 8 weeks , . She did call her [employer], Dr. Mcnulty's office today who recommended coming in for IV fluids. She has been trying to take diclegis at home with no improvement in her symptoms. She states she's not been able to tolerate any oral intake for the past 3 days. She denies any abdominal pain, no vaginal bleeding, no dysuria. Patient denies chest pain or shortness of breath, no cough or fevers. She has no further complaints. Upon arrival to the ER, her pulse is in the 120s, rest of vitals normal. - Related Data Home Medications Medication Instructions Recorded Confirmed Cholecalciferol [Vitamin D3 (25 2,000 unit PO DAILY 05/14/20 05/18/20 Mcg = 1000 Iu)] Previous Rx's Medication Instructions Recorded Cephalexin [Keflex] 500 mg PO Q8H 4 Days #12 cap 05/03/21 Metoclopramide [Reglan] 10 mg PO TID PRN #15 tab 05/03/21 Allergies Allergy/AdvReac Type Severity Reaction Status Date / Time No Known Allergies Allergy Verified 05/03/21 13:50 Review of Systems ROS Statement: Those systems with pertinent positive or pertinent negative responses have been documented in the HPI. ROS Other: All systems not noted in ROS Statement are negative. Past Medical History Past Medical History: GERD/Reflux, Thyroid Disorder Additional Past Medical History / Comment(s): SEE DR HAGAN'S HISTORY AND PHYSICAL, THYROID NODULE, POTS History of Any Multi-Drug Resistant Organisms: None Reported Past Surgical History: Adenoidectomy, Ear Surgery, Tonsillectomy Additional Past Surgical History / Comment(s): WISDOM TEETH EXTRACTION Past Anesthesia/Blood Transfusion Reactions: No Reported Reaction Past Psychological History: No Psychological Hx Reported Smoking Status: Never smoker Past Alcohol Use History: None Reported Past Drug Use History: None Reported - Past Family History Mother Family Medical History: Cancer Additional Family Medical History / Comment(s): thyroid General Exam - General Exam Comments Initial Comments: GENERAL: Patient is well-developed and well-nourished. Patient is nontoxic and in no acute distress. HEAD: Atraumatic, normocephalic. EYES: Pupils equal round and reactive to light, extraocular movements intact, sclera anicteric, conjunctiva are normal. Eyelids were unremarkable. ENT: Oropharynx clear without exudates. Moist mucous membranes. NECK: Normal range of motion, supple without lymphadenopathy or JVD. LUNGS: Unlabored respirations. Breath sounds clear to auscultation bilaterally and equal. No wheezes rales or rhonchi. HEART: Regular rate and rhythm without murmurs, rubs or gallops. ABDOMEN: Soft, nontender, normoactive bowel sounds. No guarding, no rebound. No masses appreciated. MUSCULOSKELETAL: Normal extremities with adequate strength and normal range of motion, no pitting or edema. No clubbing or cyanosis. NEUROLOGICAL: Patient is alert and oriented x 3. SKIN: Warm, Dry, normal turgor, no rashes or lesions noted. Limitations: no limitations Course Vital Signs 05/03/21 13:47 Temperature 98.2 F Pulse Rate 127 H Respiratory 18 Rate Blood Pressure 109/74 O2 Sat by Pulse 98 Oximetry Medical Decision Making - Medical Decision Making Patient is a 31-year-old female, currently 8 weeks , presenting for nausea, vomiting, dehydration over the past 3 days. , [employer] is Dr. Mcnulty, they sent her in for dehydration. She has been having nausea and vomiting throughout this entire and with her past pregnancies. Labs show a slight white count, 13.1, his most likely reactive, urine does show 2+ ketones, moderate leukocytes Estrace and 8 wbc's with few bacteria. Patient will be treated for asymptomatic bacteria. Patient received a liter and a half of fluids and Reglan, she reports improvement in her symptoms. I will send her home with some additional Reglan for nausea or vomiting. She'll follow up with her [employer]. She is agreeable as planned. She is stable for discharge. - Lab Data Result diagrams: 05/03/21 14:40 05/03/21 14:40 Lab Results 05/03/21 05/03/21 05/03/21 Range/Units 14:40 14:40 14:40 WBC 13.1 H (3.8-10.6) k/uL RBC 4.86 (3.80-5.40) m/uL Hgb 13.6 (11.4-16.0) gm/dL Hct 41.6 (34.0-46.0) % MCV 85.5 (80.0-100.0) fL MCH 27.9 (25.0-35.0) pg MCHC 32.7 (31.0-37.0) g/dL RDW 12.9 (11.5-15.5) % Plt Count 283 (150-450) k/uL MPV 7.3 Neutrophils % 73 % Lymphocytes % 21 % Monocytes % 3 % Eosinophils % 1 % Basophils % 0 % Neutrophils # 9.6 H (1.3-7.7) k/uL Lymphocytes # 2.7 (1.0-4.8) k/uL Monocytes # 0.4 (0-1.0) k/uL Eosinophils # 0.1 (0-0.7) k/uL Basophils # 0.0 (0-0.2) k/uL Sodium 134 L (137-145) mmol/L Potassium 3.9 (3.5-5.1) mmol/L Chloride 101 (98-107) mmol/L Carbon Dioxide 23 (22-30) mmol/L Anion Gap 10 mmol/L BUN 10 (7-17) mg/dL Creatinine 0.51 L (0.52-1.04) mg/dL Est GFR (CKD-EPI)AfAm >90 (>60 ml/min/1.73 sqM) Est GFR (CKD-EPI)NonAf >90 (>60 ml/min/1.73 sqM) Glucose 95 (74-99) mg/dL Calcium 9.5 (8.4-10.2) mg/dL Total Bilirubin 0.4 (0.2-1.3) mg/dL AST 24 (14-36) U/L ALT 19 (4-34) U/L Alkaline Phosphatase 72 (38-126) U/L Total Protein 7.7 (6.3-8.2) g/dL Albumin 4.3 (3.5-5.0) g/dL Urine Color Yellow Urine Appearance Cloudy H (Clear) Urine pH 7.0 (5.0-8.0) Ur Specific [place] 1.030 (1.001-1.035) Urine Protein Trace H (Negative) Urine Glucose (UA) Negative (Negative) Urine Ketones 2+ H (Negative) Urine Blood Negative (Negative) Urine Nitrite Negative (Negative) Urine Bilirubin Negative (Negative) Urine Urobilinogen <2.0 (<2.0) mg/dL Ur Leukocyte Esterase Moderate H (Negative) Urine RBC 25 H (0-5) /hpf Urine WBC 8 H (0-5) /hpf Ur Squamous Epith Cells 10 H (0-4) /hpf Urine Bacteria Few H (None) /hpf Urine Mucus Many H (None) /hpf Disposition Clinical Impression: Dehydration, Nausea and vomiting during , Asymptomatic bacteriuria during Disposition: HOME SELF-CARE Condition: Stable Instructions (If sedation given, give patient instructions): Nausea and Vomiting in (ED) Additional Instructions: Please return to the Emergency Department if symptoms worsen or any other concerns. Take antibiotic as prescribed, finish entire course. May take Reglan for any future nausea and vomiting, increase your fluids. Follow up with your [employer]. Prescriptions: Cephalexin [Keflex] 500 mg PO Q8H 4 Days #12 cap Metoclopramide [Reglan] 10 mg PO TID PRN #15 tab PRN Reason: Nausea Is patient prescribed a controlled substance at d/c from ED?: No Referrals: Ramsey Chaudhary MD [Primary Care Provider] - 1-2 days Carisa Mcnulty DO [Doctor of Osteopathic Medicine] - 1-2 days Time of Disposition: 16:08
[2021-05-03 16:15] VITALS: BP 126/64; PULSE 91; RESP 20
== END 2021-05-03 16:14 | disposition home or self-care (01) ==
LOC: EC 12:55
DX: O21.9 Vomiting of pregnancy, unspecified (principal); O99.281 Endocrine, nutritional and metabolic diseases complicating pregnancy, first trimester; E86.0 Dehydration; O99.891 Other specified diseases and conditions complicating pregnancy; R82.71 Bacteriuria
CPT/HCPCS: 36415; 80053; 85025; 81001; 99284; 96374; 96361; J2765

== ENCOUNTER 2021-05-10 15:03 | Emergency (ER) | payer BC ==
[2021-05-10 15:26] VITALS: RESP 18; TEMP 97.9
[2021-05-10] MEDS ORDERED: METOCLOPRAMIDE 5 MG/ML 2 ML VIAL IVP STA ×2 (15:32→15:48)
[2021-05-10] MEDS ORDERED: SODIUM CHLORIDE 0.9% 1,000 ML IV STA (15:32)
--- NOTE | 2021-05-10 15:40 | ED ---
General Adult HPI - General Chief complaint: Nausea/Vomiting/Diarrhea Stated complaint: Vomiting Blood 9weeks HCG Time Seen by Provider: 05/10/21 15:30 Source: patient, RN notes reviewed, old records reviewed Mode of arrival: ambulatory Limitations: no limitations - History of Present Illness Initial comments: This is a well-appearing 31-year-old female that presents to the emergency room with complaints of vomiting 7 times today. She states that there is blood specks in her vomit. She denies any pain. She states that she was seen in the ER on May 03 for the same and was given IV fluids. She is currently [address] Mcnulty told her if she goes more than 24 hours without food or fluids she should return to the emergency room. She denies any abdominal pain or vaginal bleeding. She states that she was prescribed Diclegis which was not working and she's been using the Reglan as prescribed at last visit but is still vomiting. At the last visit she was prescribed antibiotics for asymptomatic bacteria in her urine but states that she vomited a lot of those antibiotics up. She is a has had 2 miscarriages this year. Patient has a history of GERD and POTS. -: days(s) (1) Radiation: non-radiation Severity scale (1-10): 0 Improves with: none Worsens with: eating Associated Symptoms: denies other symptoms Treatments Prior to Arrival: other (reglan) - Related Data Home Medications Medication Instructions Recorded Confirmed Cholecalciferol [Vitamin D3 (25 2,000 unit PO DAILY 05/14/20 05/18/20 Mcg = 1000 Iu)] Previous Rx's Medication Instructions Recorded Cephalexin [Keflex] 500 mg PO Q8H 4 Days #12 cap 05/03/21 Metoclopramide [Reglan] 10 mg PO TID PRN #15 tab 05/03/21 Allergies Allergy/AdvReac Type Severity Reaction Status Date / Time No Known Allergies Allergy Verified 05/10/21 15:26 Review of Systems ROS Statement: Those systems with pertinent positive or pertinent negative responses have been documented in the HPI. ROS Other: All systems not noted in ROS Statement are negative. Past Medical History Past Medical History: GERD/Reflux, Thyroid Disorder Additional Past Medical History / Comment(s): SEE DR HAGAN'S HISTORY AND PHYSICAL, THYROID NODULE, POTS History of Any Multi-Drug Resistant Organisms: None Reported Past Surgical History: Adenoidectomy, Ear Surgery, Tonsillectomy Additional Past Surgical History / Comment(s): WISDOM TEETH EXTRACTION Past Anesthesia/Blood Transfusion Reactions: No Reported Reaction Past Psychological History: No Psychological Hx Reported Smoking Status: Never smoker Past Alcohol Use History: None Reported Past Drug Use History: None Reported - Past Family History Mother Family Medical History: Cancer Additional Family Medical History / Comment(s): thyroid General Exam Limitations: no limitations General appearance: alert, in no apparent distress Head exam: Present: atraumatic, normocephalic, normal inspection Eye exam: Present: normal appearance, PERRL, EOMI. Absent: scleral icterus, conjunctival injection, periorbital swelling ENT exam: Present: normal exam, mucous membranes moist, other (Erythematous oropharynx) Neck exam: Present: normal inspection, full ROM. Absent: tenderness, meningismus, lymphadenopathy, thyromegaly Respiratory exam: Present: normal lung sounds bilaterally. Absent: respiratory distress, wheezes, rales, rhonchi, stridor, chest wall tenderness, accessory muscle use Cardiovascular Exam: Present: normal rhythm, tachycardia, normal heart sounds. Absent: systolic murmur, diastolic murmur, rubs, gallop, clicks GI/Abdominal exam: Present: soft, normal bowel sounds. Absent: distended, tenderness, guarding, rebound, rigid Extremities exam: Present: normal inspection, full ROM, normal capillary refill. Absent: tenderness, pedal edema, joint swelling, calf tenderness Back exam: Present: normal inspection, full ROM. Absent: tenderness, CVA tenderness (R), CVA tenderness (L), rash noted Neurological exam: Present: alert, oriented X3 Psychiatric exam: Present: normal affect, normal mood Skin exam: Present: warm, dry, intact, normal color. Absent: rash, cyanosis, diaphoretic, erythema, petechiae, pallor Course Vital Signs 05/10/21 05/10/21 15:21 17:10 Temperature 97.9 F Pulse Rate 120 H 90 Respiratory 18 18 Rate Blood Pressure 109/69 112/76 O2 Sat by Pulse 99 100 Oximetry Medical Decision Making - Medical Decision Making This is a well-appearing 31-year-old female that presents to the emergency room with nausea and vomiting consistent with hyperemesis gravidarum. She denies any abdominal pain or vaginal bleeding. She was seen on May 03 for similar symptoms. At that time she was found to have asymptomatic bacteriuria and prescribed Keflex. She states that she has been vomiting and is unsure if she kept the Antibiotics down. Her urinalysis remains with some bacteria she was given a gram of Rocephin IV. She was also given a liter of normal saline and Reglan IV. She is tolerating crackers and water in the ER. Vital signs are stable at discharge. Patient will be discharged home and directed to continue her previously prescribed antiemetics and to follow up with her bus starter this week. Patient is agreeable to this plan of care. Return to the emergency room with any new or worsening symptoms. Case discussed with Dr. Segal - Lab Data Result diagrams: 05/10/21 15:50 05/10/21 15:50 Lab Results 05/10/21 05/10/21 05/10/21 Range/Units 15:50 15:50 15:50 WBC 12.9 H (3.8-10.6) k/uL RBC 4.74 (3.80-5.40) m/uL Hgb 13.4 (11.4-16.0) gm/dL Hct 40.0 (34.0-46.0) % MCV 84.4 (80.0-100.0) fL MCH 28.3 (25.0-35.0) pg MCHC 33.5 (31.0-37.0) g/dL RDW 12.5 (11.5-15.5) % Plt Count 265 (150-450) k/uL MPV 8.2 Neutrophils % 71 % Lymphocytes % 23 % Monocytes % 4 % Eosinophils % 1 % Basophils % 0 % Neutrophils # 9.1 H (1.3-7.7) k/uL Lymphocytes # 3.0 (1.0-4.8) k/uL Monocytes # 0.5 (0-1.0) k/uL Eosinophils # 0.1 (0-0.7) k/uL Basophils # 0.0 (0-0.2) k/uL Sodium 134 L (137-145) mmol/L Potassium 4.2 (3.5-5.1) mmol/L Chloride 100 (98-107) mmol/L Carbon Dioxide 24 (22-30) mmol/L Anion Gap 10 mmol/L BUN 11 (7-17) mg/dL Creatinine 0.58 (0.52-1.04) mg/dL Est GFR (CKD-EPI)AfAm >90 (>60 ml/min/1.73 sqM) Est GFR (CKD-EPI)NonAf >90 (>60 ml/min/1.73 sqM) Glucose 96 (74-99) mg/dL Calcium 9.6 (8.4-10.2) mg/dL Total Bilirubin 0.4 (0.2-1.3) mg/dL AST 18 (14-36) U/L ALT 19 (4-34) U/L Alkaline Phosphatase 72 (38-126) U/L Total Protein 7.3 (6.3-8.2) g/dL Albumin 4.2 (3.5-5.0) g/dL Amylase 60 (30-110) U/L Lipase 47 (23-300) U/L Urine Color Yellow Urine Appearance Cloudy H (Clear) Urine pH 6.0 (5.0-8.0) Ur Specific [place] 1.029 (1.001-1.035) Urine Protein 1+ H (Negative) Urine Glucose (UA) Negative (Negative) Urine Ketones 2+ H (Negative) Urine Blood Trace H (Negative) Urine Nitrite Negative (Negative) Urine Bilirubin Negative (Negative) Urine Urobilinogen <2.0 (<2.0) mg/dL Ur Leukocyte Esterase Small H (Negative) Urine RBC 5 (0-5) /hpf Urine WBC 6 H (0-5) /hpf Ur Squamous Epith Cells 4 (0-4) /hpf Urine Bacteria Occasional H (None) /hpf Urine Mucus Moderate H (None) /hpf Disposition Clinical Impression: Hyperemesis gravidarum Disposition: HOME SELF-CARE Condition: Good Instructions (If sedation given, give patient instructions): Acute Nausea and Vomiting (ED) Additional Instructions: Continue your previously prescribed Reglan and Diclegis. You can also try over the counter Unisom for nausea. Follow-up with your POLYSOMNOGRAPHY TECHNOLOGIST this week. Return to the emergency room with any new or worsening symptoms. Is patient prescribed a controlled substance at d/c from ED?: No Referrals: Ramsey Chaudhary MD [Primary Care Provider] - 1-2 days Time of Disposition: 17:07
[2021-05-10 16:07] LABS: Basophils % (A) 0 %; Eosinophils # (A) 0.1 k/uL (0-0.7); Eosinophils % (A) 1 %; HGB 13.4 gm/dL (11.4-16.0); Lymphocytes % (A) 23 %; MCH 28.3 pg (25.0-35.0); MCHC 33.5 g/dL (31.0-37.0); MCV 84.4 fL (80.0-100.0); Mean Platelet Volume 8.2; Monocytes # (A) 0.5 k/uL (0-1.0); Monocytes % (A) 4 %; Neutrophils # (A) 9.1 k/uL (1.3-7.7); Neutrophils % (A) 71 %; Platelet Count 265 k/uL (150-450); RBC 4.74 m/uL (3.80-5.40); RDW 12.5 % (11.5-15.5); WBC 12.9 k/uL (3.8-10.6)
[2021-05-10 16:09] LABS: Appearance,Urine Cloudy (Clear); Bacteria,Urine Occasional /hpf; Bilirubin,Urine Negative (Negative); Blood,Urine Trace (Negative); Color,Urine Yellow; Glucose,Urine (UA) Negative (Negative); Ketones,Urine 2+ (Negative); Leukocyte Esterase,Urine Small (Negative); Mucus,Urine Moderate /hpf; Nitrite,Urine Negative (Negative); Protein,Urine 1+ (Negative); RBC,Urine 5 /hpf (0-5); Specific Gravity,Urine 1.029 (1.001-1.035); Squamous Epithelial Cell,Urine 4 /hpf (0-4); Urobilinogen,Urine <2.0 mg/dL (<2.0); WBC,Urine 6 /hpf (0-5)
[2021-05-10 16:15] LABS: Chloride 100 mmol/L (98-107); Potassium 4.2 mmol/L (3.5-5.1); Sodium 134 mmol/L (137-145)
[2021-05-10 16:16] LABS: ALT 19 U/L (4-34); AST 18 U/L (14-36); African American GFR (CKD) >90 (>60 ml/min/1.73 sqM); Albumin 4.2 g/dL (3.5-5.0); Alkaline Phosphatase 72 U/L (38-126); Amylase 60 U/L (30-110); Anion Gap 10 mmol/L; Blood Urea Nitrogen 11 mg/dL (7-17); Calcium 9.6 mg/dL (8.4-10.2); Carbon Dioxide 24 mmol/L (22-30); Glucose 96 mg/dL (74-99); Lipase 47 U/L (23-300); Non-African American GFR(CKD) >90 (>60 ml/min/1.73 sqM); Total Bilirubin 0.4 mg/dL (0.2-1.3); Total Protein 7.3 g/dL (6.3-8.2)
[2021-05-10] MEDS ORDERED: cefTRIAXone IN SWFI 1,000 MG/10 ML SYRINGE IVP STA (16:50)
[2021-05-10 17:11] VITALS: BP 112/76; PULSE 90
== END 2021-05-10 17:32 | disposition home or self-care (01) ==
LOC: EC 15:03
DX: O21.0 Mild hyperemesis gravidarum (principal); Z3A.09 9 weeks gestation of pregnancy
CPT/HCPCS: 36415; 80053; 82150; 83690; 85025; 81001; 99284; 96374; 96375; J2765; J0696

== ENCOUNTER 2021-12-10 06:11 | Inpatient (IN) | payer BC ==
[2021-12-10] MEDS ORDERED: CARBOPROST TROMETHAMINE 250 MCG/ML 1 ML AMP IM PRN (06:29)
[2021-12-10] MEDS ORDERED: TERBUTALINE 1 MG/ML VIAL SQ PRN (06:29)
[2021-12-10] MEDS ORDERED: LIDOCAINE 0.5% (PF) 5 MG/ML (50 ML SDV) SQ PRN (06:29)
[2021-12-10] MEDS ORDERED: METHYLERGONOVINE 0.2 MG/ML 1 ML AMP IM PRN (06:29)
[2021-12-10] MEDS ORDERED: OXYTOCIN 10 UNIT/ML 1 ML VIAL IM PRN (06:29)
[2021-12-10] MEDS ORDERED: OXYTOCIN 30 UNITS/500 ML NS 30 UNIT in SALINE 1 500ML.BAG IV SCH ×2 (06:30→13:15)
[2021-12-10 06:43] VITALS: RESP 16
[2021-12-10] MEDS: LACTATED RINGERS 1,000 ML IV SCH ×2 (06:44→09:50)
[2021-12-10 06:51] LABS: Basophils % (A) 0 %; Eosinophils # (A) 0.1 k/uL (0-0.7); Eosinophils % (A) 1 %; HCT 33.8 % (34.0-46.0); HGB 10.5 gm/dL (11.4-16.0); Hypochromasia Slight; Lymphocytes # (A) 2.4 k/uL (1.0-4.8); Lymphocytes % (A) 24 %; MCH 25.6 pg (25.0-35.0); MCHC 31.1 g/dL (31.0-37.0); MCV 82.4 fL (80.0-100.0); Mean Platelet Volume 8.3; Monocytes # (A) 0.5 k/uL (0-1.0); Monocytes % (A) 5 %; Neutrophils # (A) 6.7 k/uL (1.3-7.7); Neutrophils % (A) 67 %; Platelet Count 247 k/uL (150-450); RDW 14.6 % (11.5-15.5); WBC 9.9 k/uL (3.8-10.6)
--- NOTE | 2021-12-10 07:38 | P.HPOB ---
History of Present Illness H&P Date: 12/10/21 Chief Complaint: induction of labor 31 year old presents at 40 weeks for induction of labor. Her cervix is 4/80/-1. She is lupis irregularly. heart tones 135 with moderate variability and reactive. Review of Systems All systems: negative Constitutional: Denies chills, Denies fever Eyes: denies blurred vision, denies pain Ears, nose, mouth and throat: Denies headache, Denies sore throat Cardiovascular: Denies chest pain, Denies shortness of breath Respiratory: Denies cough Gastrointestinal: Denies abdominal pain, Denies diarrhea, Denies nausea, Denies vomiting Genitourinary: Denies dysuria, Denies hematuria Musculoskeletal: Denies myalgias Integumentary: Denies pruritus, Denies rash Neurological: Denies numbness, Denies weakness Psychiatric: Denies anxiety, Denies depression Endocrine: Denies fatigue, Denies weight change Past Medical History Past Medical History: Thyroid Disorder Additional Past Medical History / Comment(s): POTs, hashimotos. OB history: 2 previous vaginal deliveries History of Any Multi-Drug Resistant Organisms: None Reported Past Surgical History: Adenoidectomy, Ear Surgery, Tonsillectomy Additional Past Surgical History / Comment(s): [place] teeth Past Anesthesia/Blood Transfusion Reactions: No Reported Reaction Past Psychological History: No Psychological Hx Reported Smoking Status: Never smoker Past Alcohol Use History: None Reported Past Drug Use History: None Reported - Past Family History Mother History Unknown: Yes Family Medical History: Cancer, Diabetes Mellitus, Hypertension Additional Family Medical History / Comment(s): Thyroid cancer Medications and Allergies Home Medications Medication Instructions Recorded Confirmed Type Doxylamine Succinate [Unisom] 25 mg PO DAILY 12/10/21 12/10/21 History Levothyroxine Sodium [Synthroid] 25 mcg PO DAILY 12/10/21 12/10/21 History Omeprazole 40 mg PO DAILY 12/10/21 12/10/21 History Pnv No.95/Ferrous Fum/Folic AC 1 tab PO DAILY 12/10/21 12/10/21 History [ Multivitamin Tablet] Pyridoxine [Vitamin B-6] 50 mg PO DAILY 12/10/21 12/10/21 History Verapamil [Isoptin] 40 mg PO BID 12/10/21 12/10/21 History Allergies Allergy/AdvReac Type Severity Reaction Status Date / Time No Known Allergies Allergy Verified 05/10/21 15:26 Exam Osteopathic Statement: *. No significant issues noted on an osteopathic structural exam other than those noted in the History and Physical/Consult. Vital Signs Temp Pulse Resp BP Pulse Ox 12/10/21 06:24 96.3 F L 117 H 16 141/87 97 Intake and Output 12/09/21 12/10/21 12/10/21 22:59 06:59 14:59 Other: Weight 86.183 kg Heart: Regular rate and rhythm Lungs: Clear to auscultation bilaterally Abdomen: Soft, nontender Extremities: Negative Homans sign Results Result Diagrams: 12/10/21 06:35 Abnormal Lab Results - Last 24 Hours (Table) 12/10/21 Range/Units 06:35 Hgb 10.5 L (11.4-16.0) gm/dL Hct 33.8 L (34.0-46.0) % Assessment and Plan (1) Encounter for induction of labor Current Visit: Yes Status: Acute Code(s): Z34.90 - ENCNTR FOR SUPRVSN OF NORMAL , UNSP, UNSP TRIMESTER SNOMED Code(s): 036592773 Plan: 1. induction of labor with amniotomy and pitocin 2. anticipate normal vaginal delivery
[2021-12-10] MEDS ORDERED: fentaNYL (PF) 50 MCG/ML 5 ML AMP ONE (09:08)
[2021-12-10] MEDS ORDERED: ROPIVACAINE 5MG/ML 20ML VIAL ONE (09:08)
[2021-12-10] MEDS ORDERED: SODIUM CHLORIDE 0.9% 100 ML BAG ONE (09:08)
[2021-12-10] MEDS ORDERED: LANOLIN CREAM 5 GM TUBE TOPICAL PRN (13:11)
[2021-12-10] MEDS ORDERED: ACETAMINOPHEN TAB 325 MG TAB PO PRN (13:11)
[2021-12-10] MEDS ORDERED: diphenhydrAMINE 50 MG CAP PO PRN (13:11)
[2021-12-10] MEDS ORDERED: ZOLPIDEM 5 MG TAB PO PRN (13:11)
[2021-12-10] MEDS ORDERED: HYDROCORTISONE 2.5% RECTAL CREAM 30 GM TUBE RECTAL PRN (13:11)
[2021-12-10] MEDS ORDERED: SIMETHICONE 80 MG CHEWABLE PO PRN (13:11)
[2021-12-10] MEDS ORDERED: diphenhydrAMINE 25 MG CAP PO PRN (13:11)
[2021-12-10] MEDS ORDERED: diphenhydrAMINE 50 MG/ML 1 ML VIAL IVP PRN ×2 (13:11)
[2021-12-10] MEDS ORDERED: BENZOCAINE/MENTHOL SPRAY 1 GM/SPRAY AEROSOL TOPICAL PRN (13:11)
--- NOTE | 2021-12-10 13:11 | P.PROBDLV ---
Vaginal Delivery Note - . Vaginal Delivery Note: 31 year old presents at 40 weeks for induction of labor. Her cervix is 4/80/-1. She is lupis irregularly. heart tones 135 with moderate variability and reactive. Pitocin was started. Amniotomy performed at 7:22 AM and clear fluid noted. When she was uncomfortable she did get an epidural. Her cervix is completely dilated at 1249. She pushed, and delivered a viable female over intact perineum under epidural anesthesia at 12:56 PM. Head de livered OA, anterior shoulder delivered gentle downward guidance for by posterior shoulder and rest of body. Nose and mouth bulb suctioned, cord clamped and cut, placed mother's abdomen. Apgars 9, 9, weight pending. Placenta delivered spontaneously, intact with three-vessel cord at 12:58 PM. Vagina, cervix, perineum inspected. Second-degree midline laceration was repaired with 3-0 Vicryl. Small periurethral laceration was also repaired with 3-0 Vicryl. Estimated blood loss 50 mL. Mother and baby in stable condition.
[2021-12-10] MEDS: IBUPROFEN 600 MG TAB PO PRN ×2 (16:19→23:19)
[2021-12-10] MEDS: SENNOSIDES-DOCUSATE SODIUM 1 EACH TAB PO SCH (19:57)
[2021-12-11] MEDS: SENNOSIDES-DOCUSATE SODIUM 1 EACH TAB PO SCH (07:28)
[2021-12-11] MEDS: IBUPROFEN 600 MG TAB PO PRN (07:28)
[2021-12-11] MEDS ORDERED: LEVOTHYROXINE 25 MCG TAB PO SCH (08:00)
[2021-12-11 08:42] VITALS: PULSE 77
[2021-12-11 08:47] LABS: Basophils # (A) 0.1 k/uL (0-0.2); Basophils % (A) 0 %; Eosinophils # (A) 0.1 k/uL (0-0.7); Eosinophils % (A) 1 %; HCT 34.2 % (34.0-46.0); HGB 10.6 gm/dL (11.4-16.0); Hypochromasia Slight; Lymphocytes # (A) 2.2 k/uL (1.0-4.8); Lymphocytes % (A) 20 %; MCH 25.6 pg (25.0-35.0); MCHC 30.9 g/dL (31.0-37.0); Mean Platelet Volume 8.9; Monocytes # (A) 0.4 k/uL (0-1.0); Monocytes % (A) 4 %; Neutrophils # (A) 8.3 k/uL (1.3-7.7); Neutrophils % (A) 74 %; Platelet Count 228 k/uL (150-450); RBC 4.12 m/uL (3.80-5.40); RDW 14.6 % (11.5-15.5); WBC 11.3 k/uL (3.8-10.6)
--- NOTE | 2021-12-11 11:58 | P.DS ---
Providers Date of admission: 12/10/21 06:11 Expected date of discharge: 12/11/21 Attending physician: Carisa Mcnulty Primary care physician: Stated None Hospital Course: This is a 31-year-old female 5 para 2 at 40-0/7 weeks who presented for induction of labor. She delivered vaginally a viable female infant on 12/10/2021 with scores of 9 at 1 minute and 9 at 5 minutes and infant weight of 7 lbs. 15 oz. Her course has been uncomplicated. She is breast-feeding. Lochia is decreasing. Her pain is well-controlled with ibuprofen. Vital signs are stable. Abdomen is soft with fundus firm and nontender. Extremities show negative Homans. Impression is status post vaginal delivery day #1. Plan is to discharge home today. Routine instructions are given. She is advised follow-up in the office with Dr. Mcnulty in 6 weeks. She is advised to call the office if she has any further questions or concerns prior to her appointment time. Procedures: Oxytocin induction of labor Spontaneous vaginal delivery of a viable female infant on 12/10/2021 Patient Condition at Discharge: Stable Plan - Discharge Summary New Discharge Prescriptions: New Ibuprofen [Motrin] 600 mg PO Q6HR PRN #60 tab PRN Reason: Mild Pain (Scale 1 To 3) Continue Pnv No.95/Ferrous Fum/Folic AC [ Multivitamin Tablet] 1 tab PO DAILY Omeprazole 40 mg PO DAILY Levothyroxine Sodium [Synthroid] 25 mcg PO DAILY Verapamil [Isoptin] 40 mg PO BID Pyridoxine [Vitamin B-6] 50 mg PO DAILY Doxylamine Succinate [Unisom] 25 mg PO DAILY Discharge Medication List Doxylamine Succinate [Unisom] 25 mg PO DAILY 12/10/21 [History] Levothyroxine Sodium [Synthroid] 25 mcg PO DAILY 12/10/21 [History] Omeprazole 40 mg PO DAILY 12/10/21 [History] Pnv No.95/Ferrous Fum/Folic AC [ Multivitamin Tablet] 1 tab PO DAILY 12/10/21 [History] Pyridoxine [Vitamin B-6] 50 mg PO DAILY 12/10/21 [History] Verapamil [Isoptin] 40 mg PO BID 12/10/21 [History] Ibuprofen [Motrin] 600 mg PO Q6HR PRN #60 tab 12/11/21 [Rx] Follow up Appointment(s)/Referral(s): Carisa Mcnulty DO [Doctor of Osteopathic Medicine] - 01/20/22 3:45 pm Activity/Diet/Wound Care/Special Instructions: Instructions 1. Do not begin any exercise program for 3 weeks. 2. Do not resume sexual relations for 3 weeks or longer if uncomfortable. 3. You may take tub baths or showers at any time. 4. You may use tampons if desired after 3 weeks. 5. Keep the area of episiotomy (stitches) clean and dry. 6. If you are not nursing, wear a good fitting, supportive bra during the day and limit fluid intake for at least 1 week to prevent breast engorgement. 7. Call the office, [phone], within the next week to make appointment for your 6 week checkup if it has not already been made. 8. Report any of the following occurrences to the doctor promptly: a. Heavy, excessive bleeding b. Chills, fever c. Burning or frequency of urination d. Pain or redness and breasts if nursing e. Increasing pain or swelling in episiotomy (stitches). In addition to the above instructions, the following additional should be followed: 1. No heavy lifting or straining (exercising) until after 6 week checkup. 2. Keep abdominal incision clean and dry: You may wear a dressing if more comfortable. 3. Make office appointment for 10 days after going home or as instructed by her doctor. Discharge Disposition: HOME SELF-CARE
[2021-12-11 12:32] VITALS: BP 115/65; TEMP 98.2
[2021-12-12] MEDS ORDERED: LEVOTHYROXINE 25 MCG TAB PO SCH (06:30)
== END 2021-12-11 13:30 | disposition home or self-care (01) | DRG 807 ==
LOC: 4FBP 06:11
PROVIDERS: ADMIT Obstetrics & Gynecology; ATTEND Obstetrics & Gynecology
PROC: 10E0XZZ Delivery of Products of Conception, External Approach (ICD-10-PCS; principal; 2021-12-10)
PROC: 0KQM0ZZ Repair Perineum Muscle, Open Approach (ICD-10-PCS; 2021-12-10)
DX: O70.1 Second degree perineal laceration during delivery (principal); Z37.0 Single live birth; O71.82 Other specified trauma to perineum and vulva; E06.3 Autoimmune thyroiditis; O99.284 Endocrine, nutritional and metabolic diseases complicating childbirth; Z3A.40 40 weeks gestation of pregnancy; Z79.890 Hormone replacement therapy
CPT/HCPCS: 85025; 86850; 86900; 86901

== ENCOUNTER → 2022-03-18 | Outpatient (CLI) | payer BC ==
[2022-03-18 19:10] LABS: T4, Free (Free Thyroxine) 1.39 ng/dL (0.800-1.800)
== END | disposition home or self-care (01) ==
LOC: LABWHC1 11:00
PROVIDERS: ATTEND Internal Medicine Endocrinology, Diabetes & Metabolism
DX: E04.1 Nontoxic single thyroid nodule (principal); E06.3 Autoimmune thyroiditis
CPT/HCPCS: 36415; 84439; 84443; 84481

== ENCOUNTER → 2022-07-09 | Outpatient (CLI) | payer BC ==
[2022-07-09 21:51] LABS: T4, Free (Free Thyroxine) 1.64 ng/dL (0.800-1.800)
== END | disposition home or self-care (01) ==
LOC: LABWHC1 09:55
PROVIDERS: ATTEND Internal Medicine Endocrinology, Diabetes & Metabolism
DX: E04.1 Nontoxic single thyroid nodule (principal); E06.3 Autoimmune thyroiditis
CPT/HCPCS: 36415; 84439; 84443; 84481

== ENCOUNTER → 2023-07-31 | Outpatient (CLI) | payer BC ==
[2023-07-31 11:59] LABS: Basophils # (A) 0.06 X 10*3/uL (0.00-0.10); Eosinophils # (A) 0.11 X 10*3/uL (0.04-0.35); Eosinophils % (A) 1.9 %; HCT 40.6 % (37.2-46.3); HGB 12.8 g/dL (12.0-15.0); Lymphocytes # (A) 2.54 X 10*3/uL (0.90-5.00); Lymphocytes % (A) 43.6 %; MCH 26.7 pg (27.0-32.0); MCHC 31.5 g/dL (32.0-37.0); MCV 84.6 FL (80.0-97.0); Monocytes % (A) 5.1 %; NRBC Per 100 WBC 0 X 10*3/uL (0.00-0.01); Neutrophils # (A) 2.81 X 10*3/uL (1.80-7.70); Neutrophils % (A) 48.2 %; Platelet Count 288 X 10*3/uL (140-440); RDW 13.5 % (11.5-14.5); WBC 5.83 X 10*3/uL (4.50-10.00)
[2023-07-31 12:32] LABS: % Iron Saturation 19.85 (12.00-45.00); ALT 14 U/L (8-44); AST 11 U/L (13-35); Albumin 4.4 g/dL (3.8-4.9); Albumin/Globulin Ratio 1.83 Ratio (1.60-3.17); Alkaline Phosphatase 60 U/L (41-126); BUN/Creat Ratio 13.38 Ratio (12.00-20.00); Blood Urea Nitrogen 10.7 mg/dL (9.0-27.0); Calcium 9.3 mg/dL (8.7-10.3); Carbon Dioxide 25.8 mmol/L (21.6-31.8); Chloride 105 mmol/L (96-109); Globulin 2.4 g/dL (1.6-3.3); Glucose 85 mg/dL (70-110); Iron 79 UG/DL (50-170); Potassium 4.4 mmol/L (3.5-5.5); Sodium 140 mmol/L (135-145); Total Bilirubin 0.4 mg/dL (0.3-1.2); Total Iron Binding Capacity 398 UG/DL (228-460); Total Protein 6.8 g/dL (6.2-8.2)
[2023-07-31 12:35] LABS: Follicle Stimulating Hormone 5.4 mIU/mL; Luteinizing Hormone 4.5 mIU/mL
== END | disposition home or self-care (01) ==
LOC: LABWHC1 08:30
PROVIDERS: ATTEND Internal Medicine Endocrinology, Diabetes & Metabolism
DX: L65.9 Nonscarring hair loss, unspecified (principal); N92.6 Irregular menstruation, unspecified; R79.89 Other specified abnormal findings of blood chemistry
CPT/HCPCS: 36415; 80053; 82157; 82306; 82533; 82607; 82627; 82746; 83001; 83002; 83498; 83540; 83550; 84146; 84402; 84403; 85025